=== PATIENT | female | born 1980 | race Caucasian/White ===

== ENCOUNTER 2016-09-06 16:28 | Emergency (ER) | payer BC, OTHER ==
[2016-09-06] MEDS ORDERED: KETOROLAC 30 MG/ML 1 ML VIAL IVP STA (16:53)
[2016-09-06] MEDS ORDERED: SODIUM CHLORIDE 0.9% 1,000 ML IV STA (16:53)
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
[2016-09-06 17:23] LABS: Basophils % (A) 1 %; CH 30.9; CHCM 34.2; Eosinophils # (A) 0.1 k/uL (0-0.7); Eosinophils % (A) 2 %; HCT 37.9 % (34.0-46.0); HDW 2.63; HGB 12.8 gm/dL (11.4-16.0); Luc # (Auto) 0.12; Luc % (Auto) 2; Lymphocytes # (A) 2.6 k/uL (1.0-4.8); Lymphocytes % (A) 36 %; MCH 30.6 pg (25.0-35.0); MCHC 33.7 g/dL (31.0-37.0); MCV 90.9 fL (80.0-100.0); Mean Platelet Volume 7.4; Monocytes # (A) 0.4 k/uL (0-1.0); Monocytes % (A) 5 %; Neutrophils # (A) 3.8 k/uL (1.3-7.7); Neutrophils % (A) 54 %; RBC 4.17 m/uL (3.80-5.40); RDW 12.7 % (11.5-15.5); WBC 7.1 k/uL (3.8-10.6); WBC (Perox) 6.74
[2016-09-06 17:33] LABS: Appearance,Urine Cloudy (Clear); Bilirubin,Urine Negative (Negative); Glucose,Urine (UA) Negative (Negative); Ketones,Urine Negative (Negative); Leukocyte Esterase,Urine Trace (Negative); Mucus,Urine Moderate /hpf; Nitrite,Urine Negative (Negative); Particle Count 5449; Protein,Urine 1+ (Negative); RBC,Urine >182 /hpf (0-5); Specific Gravity,Urine 1.027 (1.001-1.035); Squamous Epithelial Cell,Urine 1 /hpf (0-4); UA Billing (MACRO vs. MICRO) MICRO; Urobilinogen,Urine <2.0 mg/dL (<2.0); WBC,Urine 24 /hpf (0-5)
[2016-09-06 17:44] LABS: ALT 43 U/L (9-52); AST 26 U/L (14-36); Alkaline Phosphatase 77 U/L (38-126); Anion Gap 8 mmol/L; Blood Urea Nitrogen 18 mg/dL (7-17); Calcium 9.2 mg/dL (8.4-10.2); Carbon Dioxide 27 mmol/L (22-30); Chloride 105 mmol/L (98-107); Glucose 89 mg/dL (74-99); Non-African American GFR(MDRD) >60 (>60 ml/min/1.73 sqM); Potassium 4.5 mmol/L (3.5-5.1); Sodium 140 mmol/L (137-145); Total Bilirubin 0.5 mg/dL (0.2-1.3); Total Protein 7.8 g/dL (6.3-8.2)
[2016-09-06 18:01] LABS: HCG,Quantitative Serum <2.4 mIU/mL
--- NOTE | 2016-09-06 18:08 | US ---
EXAMINATION TYPE: US transvaginal plus Dopplers DATE OF EXAM: 09/06/2016 5:35 PM COMPARISON: CLINICAL HISTORY: 36-year-old female Pain. LLQ pain, Heavy bleeding. Tubes tied + reversal. TECHNIQUE: Multiple transvaginal sonographic images of the pelvis are obtained. Color Doppler and sp ectral waveform analysis of the ovarian arteries and veins. Date of LMP: 08/30/2016 FINDINGS: Uterus: Anteverted measuring 10.1 x 5.9 x 5.6 cm. Cervical nabothian cyst is noted measuring up to 8 mm. Endometrial Stripe: 2.1 cm, thickened and not well delineated. Right Ovary: 3.4 x 2.7 x 1.7 cm for a volume of 8.2 mL. Numerous small follicles are present within. There is satisfactory arterial and venous flow. Left Ovary: 2.9 x 2.4 x 2.3 cm for a volume of 8.3 mL. Numerous small peripheral follicles are prese nt. There is satisfactory arterial and venous flow. No evident adnexal abnormality. Small amount of cul-de-sac free fluid likely physiologic. IMPRESSION: 1. No sonographic evidence for ovarian torsion. 2. Follicular change in both ovaries. 3. Excessively thickened endometrial stripe at 2.1 cm. Follow-up in 6-8 weeks to reassess the endomet rium. 4. Small amount of cul-de-sac free fluid likely physiologic.
[2016-09-06 18:23] VITALS: BP 139/85; PULSE 81; RESP 18; TEMP 97.6
== END 2016-09-06 18:24 | disposition home or self-care (01) ==
LOC: EC 16:28
DX: N92.1 Excessive and frequent menstruation with irregular cycle (principal); N85.8 Other specified noninflammatory disorders of uterus; E07.9 Disorder of thyroid, unspecified; Z98.51 Tubal ligation status; Z32.02 Encounter for pregnancy test, result negative; Z79.899 Other long term (current) drug therapy; Z87.891 Personal history of nicotine dependence
CPT/HCPCS: 99284; 96374; 96361; 36415; 86900; 86901; 80053; 85025; 81001; 84702; 93975; 76830; J1885

== ENCOUNTER → 2016-09-18 | Outpatient (CLI) | payer OTHER ==
--- NOTE | 2016-09-18 21:24 | MR ---
EXAMINATION TYPE: MR angio head wo con DATE OF EXAM: 09/18/2016 COMPARISON: NONE HISTORY: Headache TECHNIQUE: Utilizing 3-D [id number] intracranial MRA of the [place] was performed. FINDINGS: The vertebrobasilar and carotid systems are patent. There is 2 mm protuberance extending off the pos terior margin of the distal left ICA compatible with a tiny aneurysm. Posterior cerebral artery on the right originates from the anterior circulation. IMPRESSION: 1. 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
--- NOTE | 2016-09-18 21:24 | MR ---
MRI of the brain with and without contrast EXAM DATE: 09/18/2016 HISTORY: Headaches. TECHNIQUE: T1-weighted sagittal, T2, FLAIR, and diffusion axial, postcontrast T1 axial and coronal vi ews of the brain are submitted. CONTRAST: 20 mL MultiHance FINDINGS: There is no evidence of acute ischemia. The ventricles, basal cisterns, and sulci overlying the co nvexities are consistent with the patient's age. There is no mass effect or enhancing mass. Craniocervical junction maintained. Sella turcica has a normal appearance. No evidence of cerebellopo ntine angle mass. Changes of mild chronic sinusitis. WHITE MATTER: No abnormal signal within the white matter. IMPRESSION: 1. No acute intracranial process
== END | disposition home or self-care (01) ==
LOC: RADMRIMAIN 19:10
PROVIDERS: ATTEND Psychiatry & Neurology Neurology
DX: I67.1 Cerebral aneurysm, nonruptured (principal)
CPT/HCPCS: 70544; 70553; A9577

== ENCOUNTER → 2016-10-24 | Outpatient (CLI) | payer OTHER ==
[2016-10-24 12:31] LABS: Follicle Stimulating Hormone 4.7 mIU/mL; Prolactin 22.1 ng/mL (3.0-18.6)
--- NOTE | 2016-10-24 14:18 | US ---
EXAMINATION TYPE: US pelvic complete DATE OF EXAM: 10/24/2016 COMPARISON: Previous study dated 09/06/2016 CLINICAL HISTORY: R93.8 Endometrial Thickening on US. Heavy cycles, dub TECHNIQUE: Transvaginal (TV) and Transabdominal (TA) Date of LMP: dub, unsure EXAM MEASUREMENTS: Uterus: 11.1 x 5.5 x 5.3 cm Endometrial Stripe: 2.2 cm Right Ovary: 4.2 x 2.5 x 3.2 cm Left Ovary: 3.4 x 3.2 x 2.5 cm 1. Uterus: Anteverted diffusely heterogeneous echo pattern, few Nabothian cysts 2. Endometrium: thickened at cm with vascularity 3. Right Ovary: wnl 4. Left Ovary: wnl 5. Bilateral Adnexa: wnl 6. Posterior cul-de-sac: no free fluid seen IMPRESSION: 1. Heterogenous uterus may reflect adenomyosis. 2. Nabothian cysts.
== END | disposition home or self-care (01) ==
LOC: RADUSWWP 10:58
PROVIDERS: ATTEND Obstetrics & Gynecology
DX: N88.8 Other specified noninflammatory disorders of cervix uteri (principal); N92.0 Excessive and frequent menstruation with regular cycle
CPT/HCPCS: 36415; 76830; 76856; 82670; 83001; 83002; 84146; 84439; 84443

== ENCOUNTER 2016-12-10 17:29 | Emergency (ER) | payer OTHER ==
[2016-12-10] MEDS ORDERED: ONDANSETRON 4 MG/2 ML VIAL IVP STA (17:38)
[2016-12-10] MEDS ORDERED: HYDROmorphone 1 MG/ML 1 ML SYRINGE IVP STA (17:38)
[2016-12-10] MEDS ORDERED: SODIUM CHLORIDE 0.9% 500 ML IV STA (17:38)
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
[2016-12-10 17:57] LABS: Appearance,Urine Clear (Clear); Basophils # (A) 0.1 k/uL (0-0.2); Basophils % (A) 1 %; Bilirubin,Urine Negative (Negative); CH 30.7; CHCM 34.5; Eosinophils # (A) 0.2 k/uL (0-0.7); Eosinophils % (A) 2 %; Glucose,Urine (UA) Negative (Negative); HDW 2.63; HGB 13.6 gm/dL (11.4-16.0); Ketones,Urine Negative (Negative); Leukocyte Esterase,Urine Negative (Negative); Luc # (Auto) 0.18; Luc % (Auto) 2; Lymphocytes # (A) 2.9 k/uL (1.0-4.8); Lymphocytes % (A) 30 %; MCH 31.3 pg (25.0-35.0); MCV 89.5 fL (80.0-100.0); Mean Platelet Volume 7.4; Monocytes # (A) 0.4 k/uL (0-1.0); Monocytes % (A) 4 %; Neutrophils # (A) 5.9 k/uL (1.3-7.7); Neutrophils % (A) 62 %; Nitrite,Urine Negative (Negative); PH, Urine 7.5 (5.0-8.0); Protein,Urine Negative (Negative); RBC 4.36 m/uL (3.80-5.40); RDW 12.3 % (11.5-15.5); UA Billing (MACRO vs. MICRO) CHEM; Urobilinogen,Urine <2.0 mg/dL (<2.0); WBC 9.5 k/uL (3.8-10.6); WBC (Perox) 10.01
[2016-12-10 18:20] LABS: ALT 36 U/L (9-52); AST 17 U/L (14-36); Alkaline Phosphatase 84 U/L (38-126); Amylase 57 U/L (30-110); Anion Gap 11 mmol/L; Blood Urea Nitrogen 15 mg/dL (7-17); Calcium 9.4 mg/dL (8.4-10.2); Carbon Dioxide 26 mmol/L (22-30); Chloride 101 mmol/L (98-107); Glucose 91 mg/dL (74-99); Non-African American GFR(MDRD) >60 (>60 ml/min/1.73 sqM); Potassium 4.2 mmol/L (3.5-5.1); Sodium 138 mmol/L (137-145); Total Bilirubin 0.5 mg/dL (0.2-1.3); Total Protein 7.9 g/dL (6.3-8.2)
--- NOTE | 2016-12-10 18:28 | XR ---
EXAMINATION TYPE: XR KUB DATE OF EXAM: 12/10/2016 6:18 PM CLINICAL HISTORY: Abdominal pain, nausea, and vomiting TECHNIQUE: Single supine KUB image of the abdomen is obtained. COMPARISON: None. FINDINGS: Scattered gas is seen in non-distended small bowel loops. Gas and fecal material is seen in non-distended colon. There is no visceromegaly, gross pneumoperitoneum, or abnormal calcification ap preciated. The lung bases are clear and the osseous structures are intact. IMPRESSION: 1. Nonobstructive bowel gas pattern. 2. No abnormal calcifications within the abdomen.
--- NOTE | 2016-12-10 19:28 | US ---
EXAMINATION TYPE: US abdomen limited DATE OF EXAM: 12/10/2016 COMPARISON: NONE CLINICAL HISTORY: Pain. RUQ pain and nausea EXAM MEASUREMENTS: Liver Length: 18.7 cm Gallbladder Wall: 0.56 cm CBD: 0.47 cm Right Kidney: 10.3 x 4.4 x 4.7 cm Pancreas: Obscured by bowel gas Liver: wnl Gallbladder: Stone visualized Evidence for sonographic Ashford's sign: No CBD: wnl Right Kidney: No hydronephrosis or masses seen Gallstone visualized in neck of gallbladder IMPRESSION: Cholelithiasis with a solitary gallstone in the gallbladder neck. No current evidence of choledocholithiasis, acute cholecystitis, or common bile duct dilation. Intermittent biliary colic is a possibility secondary to this mobile gallstone.
[2016-12-10 20:03] VITALS: BP 137/79; PULSE 68; RESP 18; TEMP 97.9
== END 2016-12-10 20:02 | disposition home or self-care (01) ==
LOC: EC 17:29
DX: K80.20 Calculus of gallbladder without cholecystitis without obstruction (principal); R11.10 Vomiting, unspecified; E07.9 Disorder of thyroid, unspecified; Z87.891 Personal history of nicotine dependence; Z79.899 Other long term (current) drug therapy; Z98.51 Tubal ligation status
CPT/HCPCS: 99284; 96374; 96375; 36415; 80053; 82150; 83690; 85025; 81003; 81025; 74000; 76705; J2405; J1170

== ENCOUNTER 2016-12-25 09:58 | Day surgery (SDC) | payer OTHER ==
[2016-12-18 15:53] VITALS: BMI 33.6
[~2016-12-25 09:58] MED LIST: DEXAMETHASONE SOD PHOSPHATE 10 MG/ML 1 ML VIAL IV ONE; HEPARIN SODIUM,PORCINE 5,000 UNIT/ML 1 ML VIAL SQ ONE; HYDROmorphone 1 MG/ML 1 ML SYRINGE IVP PRN; LIDOCAINE 1% 20 ML VIAL (10MG/ML) FOR IV START INTRADERMA PRN; MIDAZOLAM 2 MG/2 ML VIAL IV PRN; ONDANSETRON 4 MG/2 ML VIAL IVP ONE; SCOPOLAMINE 1.5MG/72HR PATCH TRANSDERM ONE; ceFAZolin 2 GM in SODIUM CHLORIDE 0.9% 100 ML IVPB ONE
[2016-12-25] MEDS: LACTATED RINGERS 1,000 ML IV SCH ×2 (11:27→11:28)
[2016-12-25] MEDS ORDERED: SUCCINYLCHOLINE CHLORIDE 100 MG/5 ML SYR IV ONE (12:22)
[2016-12-25] MEDS ORDERED: GLYCOPYRROLATE 0.2 MG/ML 2 ML VIAL ONE (12:22)
[2016-12-25] MEDS ORDERED: fentaNYL (PF) 50 MCG/ML 2 ML AMP ONE (12:22)
[2016-12-25] MEDS ORDERED: MIDAZOLAM 2 MG/2 ML VIAL ONE (12:22)
[2016-12-25] MEDS ORDERED: PROPOFOL 10 MG/ML 20 ML VIAL IV ONE (12:22)
[2016-12-25] MEDS ORDERED: NEOSTIGMINE 1 MG/ML 10 ML VIAL ONE (12:22)
[2016-12-25] MEDS ORDERED: ROCURONIUM BROMIDE 10 MG/ML 10 ML VIAL IV ONE (12:22)
[2016-12-25] MEDS ORDERED: KETOROLAC 30 MG/ML 1 ML VIAL ONE (12:22)
[2016-12-25] MEDS ORDERED: LIDOCAINE 1% INJ 10MG/ML (20 ML MDV) ONE (12:22)
[2016-12-25] MEDS ORDERED: BUPIVACAINE-EPI 0.5%-1:200,000 10 ML VIAL SQ ONE (12:58)
[2016-12-25] MEDS ORDERED: HYDROmorphone 1 MG/ML 1 ML SYRINGE IVP ONE ×3 (13:47→14:20)
[2016-12-25] MEDS ORDERED: HYDROmorphone 2 MG/ML 1 ML SYRINGE IVP ONE (13:53)
[2016-12-25 13:58] VITALS: TEMP 97.7
[2016-12-25 14:02] VITALS: RESP 16
--- NOTE | 2016-12-25 14:08 | P.OP ---
Date of Procedure: 12/25/16 Preoperative Diagnosis: Chronic cholecystitis Postoperative Diagnosis: Chronic hcoelcystitis Procedure(s) Performed: Robot assisted laparoscopic choelcystectomy Implants: Anesthesia: RASHAWN Surgeon: Michael Castellon Pathology: other Condition: stable Indications for Procedure: Operative Findings: Description of Procedure: Patient is a 36-year-old female who presented with right upper quadrant pain and a clinical diagnosis of chronic cholecystitis was made. After appropriate informed consent and answering all the patient's questions patient taken the operating placement position and given general anesthesia with endotracheal intubation. After an unsuccessful attempt to use the Veress needle for insufflation at the infraumbilical region left upper quadrant was identified and Veress needle was used to enter the abdominal cavity and insufflated to 15 mmHg after confirming its position with the drop test. Once the abdomen insufflated 5 mm Optiview was used to enter the abdominal cavity through the left upper quadrant. Three 8 mm ports were then placed for the robot in the left upper quadrant and right upper quadrant. 12 mm port was placed supraumbuilically. Once ports were then placed the patient was placed in appropriate position of left side down and reverse Trendelenburg. The robot was docked and Prograsp was taken in arm 3, cardiere in arm 2. Camera was through the 12 mm umbilical port site. And a hook cautery was taken in the arm 1. Gallbladder was retracted cephalad and superiorly. Inflammatory adhesions were taken down with the help of electrocautery. Appropriate critical view was obtained in cystic duct and artery were isolated. 2 clips proximally and 1 distally were plced in the artery and cystic duct and then and transected sharply with the help of scissors. The gallbladder was then taken off the gallbladder fossa with the help of electrocautery. There was inadvertent hole in the gallbladder which resulted in leakage of bile. All that was sucked dry. The abdomen was thoroughly irrigated and sucked dry. Gallbladder was then placed in Endo Catch bag and removed through 12 port site after undocking the robot. Abdomen was then again visualized and completely irrigated and sucked dry. 12 mm port site was closed with the help of a Jesus Manuel Tidwell under direct laparoscopic view using 0 Vicryl. At this point the procedure was terminated and all ports were removed. Local anesthesia infiltrated into the incisions skin was closed with 4-0 Monocryl and Dermabond was applied. Patient is tolerated the procedure well with no complications. She was extubated and taken to recovery room in stable condition.
[2016-12-25] MEDS ORDERED: LACTATED RINGERS 1,000 ML IV ONE (14:37)
[2016-12-25] MEDS ORDERED: MEPERIDINE 50 MG/ML SYRINGE IVP ONE ×2 (14:38→15:15)
[2016-12-25 16:04] VITALS: BP 120/78; PULSE 96
== END 2016-12-25 16:27 | disposition home or self-care (01) ==
LOC: OR 09:58
PROVIDERS: ATTEND Surgery
DX: K80.10 Calculus of gallbladder with chronic cholecystitis without obstruction (principal); E03.9 Hypothyroidism, unspecified; K21.9 Gastro-esophageal reflux disease without esophagitis; Z79.899 Other long term (current) drug therapy
CPT/HCPCS: 47562; S2900; 81025; 88304

== ENCOUNTER 2017-01-15 08:24 | Day surgery (SDC) | payer OTHER ==
[2017-01-09 12:55] VITALS: BMI 34.4
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
[~2017-01-15 08:24] MED LIST changes: -HEPARIN SODIUM,PORCINE 5,000 UNIT/ML 1 ML VIAL SQ ONE; +HYDROmorphone 0.5 MG/0.5 ML SYRINGE IVP PRN; -HYDROmorphone 1 MG/ML 1 ML SYRINGE IVP PRN; +LACTATED RINGERS 1,000 ML IV SCH; -LIDOCAINE 1% 20 ML VIAL (10MG/ML) FOR IV START INTRADERMA PRN; -MIDAZOLAM 2 MG/2 ML VIAL IV PRN; +Pre Op ABX Message 1 EACH MISC MISCELLANE ONE; -SCOPOLAMINE 1.5MG/72HR PATCH TRANSDERM ONE; -ceFAZolin 2 GM in SODIUM CHLORIDE 0.9% 100 ML IVPB ONE
[2017-01-15] MEDS ORDERED: LIDOCAINE 1% 20 ML VIAL (10MG/ML) FOR IV START INTRADERMA ONE (08:44)
[2017-01-15] MEDS ORDERED: KETOROLAC 30 MG/ML 1 ML VIAL ONE (09:09)
[2017-01-15] MEDS ORDERED: PROPOFOL 10 MG/ML 20 ML VIAL IV ONE (09:09)
[2017-01-15] MEDS ORDERED: fentaNYL (PF) 50 MCG/ML 2 ML AMP ONE (09:09)
[2017-01-15] MEDS ORDERED: MIDAZOLAM 2 MG/2 ML VIAL ONE (09:09)
--- NOTE | 2017-01-15 09:43 | P.OP ---
Date of Procedure: 01/15/17 Preoperative Diagnosis: Metromenorrhagia Postoperative Diagnosis: Same Procedure(s) Performed: Dilation and curettage with hysteroscopy Anesthesia: RASHAWN Surgeon: Alli Zapata Estimated Blood Loss (ml): 3 Pathology: other (Uterine curettings) Condition: stable Disposition: same day Operative Findings: Grossly thickened endometrium. Pathology pending Description of Procedure: Patient was taken to the operating suite where a general anesthetic was found be adequate. She was prepped and draped in the normal sterile fashion and placed in dorsal lithotomy position. Initially a speculum was inserted into the vagina and the anterior lip cervix was identified and grasped with a Allis clamp. Camera was inserted thickened endometrium with question of polyps was noted therefore camera was removed and sharp curettings of endometrium was obtained. All tissues collected placed on Telfa and sent to pathology for evaluation once this was completed all instruments were removed sponge, lap, needle counts were all correct 2. Patient was then taken to the recovery room in stable and satisfactory condition. Plan - Discharge Summary New Discharge Prescriptions: New Ibuprofen [Motrin] 600 mg PO Q6HR PRN #30 tab PRN Reason: Pain No Action Levothyroxine Sodium [Synthroid] 75 mcg PO MOWEFR Omeprazole [PriLOSEC] 20 mg PO AC-BRKFST PRN PRN Reason: REFLUX Levothyroxine Sodium [Synthroid] 50 mcg PO SUTUTHSA Ergocalciferol (Vitamin D2) [Vitamin D2] 50,000 unit PO TU Ondansetron [Zofran ODT] 4 mg PO Q8HR PRN PRN Reason: Nausea Discharge Medication List Levothyroxine Sodium [Synthroid] 75 mcg PO MOWEFR 09/14/13 [History] Ergocalciferol (Vitamin D2) [Vitamin D2] 50,000 unit PO TU 09/06/16 [History] Levothyroxine Sodium [Synthroid] 50 mcg PO SUTUTHSA 09/06/16 [History] Omeprazole [PriLOSEC] 20 mg PO AC-BRKFST PRN 09/06/16 [History] Ondansetron [Zofran ODT] 4 mg PO Q8HR PRN 01/09/17 [History] Ibuprofen [Motrin] 600 mg PO Q6HR PRN #30 tab 01/15/17 [Rx] Follow up Appointment(s)/Referral(s): Alli Zapata DO [Doctor of Osteopathic Medicine] - 1 Week Activity/Diet/Wound Care/Special Instructions: Pelvic rest, no heavy lifting, limit stairs and driving today. If any high temperatures, heavy bleeding, or severe pain call my office Discharge Disposition: HOME SELF-CARE
[2017-01-15 09:56] VITALS: TEMP 97.3
[2017-01-15 10:40] VITALS: RESP 16
[2017-01-15 11:13] VITALS: BP 111/80; PULSE 72
== END 2017-01-15 11:35 | disposition home or self-care (01) ==
LOC: OR 08:24
PROVIDERS: ATTEND Obstetrics & Gynecology
DX: N92.1 Excessive and frequent menstruation with irregular cycle (principal); N92.0 Excessive and frequent menstruation with regular cycle; R93.8 Abnormal findings on diagnostic imaging of other specified body structures; E28.2 Polycystic ovarian syndrome; I67.1 Cerebral aneurysm, nonruptured; K21.9 Gastro-esophageal reflux disease without esophagitis; Z87.891 Personal history of nicotine dependence; E07.9 Disorder of thyroid, unspecified; Z79.899 Other long term (current) drug therapy
CPT/HCPCS: 81025; 58558; J2250; J1100; J2405; J3010; J1885; J2704; 88305

== ENCOUNTER → 2017-08-29 | Outpatient (CLI) | payer OTHER ==
[2017-08-29 16:16] LABS: DHEA Sulfate 123.4 ug/dL (26.0-430.0); Progesterone 5.6 ng/mL
[2017-08-29 16:30] LABS: Insulin Level 114.3 mIU/mL (3.0-25.0)
[2017-08-29 18:19] LABS: Hemoglobin A1C 4.8 % (4.0-6.0)
== END | disposition home or self-care (01) ==
LOC: LABWHC1 08:44
PROVIDERS: ATTEND Obstetrics & Gynecology
DX: N93.8 Other specified abnormal uterine and vaginal bleeding (principal)
CPT/HCPCS: 36415; 82627; 82947; 83036; 83525; 84144; 84402

== ENCOUNTER 2017-09-27 20:53 | Emergency (ER) | payer OTHER ==
[2017-09-27 21:10] VITALS: RESP 18
[2017-09-27] MEDS ORDERED: SODIUM CHLORIDE 0.9% 1,000 ML IV STA (21:51)
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
[2017-09-27 22:04] LABS: Appearance,Urine Cloudy (Clear); Bacteria,Urine Few /hpf; Bilirubin,Urine Negative (Negative); Blood,Urine Moderate (Negative); Color,Urine Yellow; Glucose,Urine (UA) Negative (Negative); Ketones,Urine Trace (Negative); Leukocyte Esterase,Urine Moderate (Negative); Mucus,Urine Few /hpf; Nitrite,Urine Negative (Negative); Protein,Urine Trace (Negative); RBC,Urine 5 /hpf (0-5); Squamous Epithelial Cell,Urine 7 /hpf (0-4); WBC,Urine 11 /hpf (0-5)
[2017-09-27 22:06] LABS: Basophils % (A) 1 %; Eosinophils # (A) 0.2 k/uL (0-0.7); Eosinophils % (A) 2 %; HCT 36.6 % (34.0-46.0); HGB 12.5 gm/dL (11.4-16.0); Lymphocytes # (A) 2.6 k/uL (1.0-4.8); Lymphocytes % (A) 30 %; MCH 30.1 pg (25.0-35.0); MCV 88.4 fL (80.0-100.0); Mean Platelet Volume 7.1; Monocytes # (A) 0.5 k/uL (0-1.0); Monocytes % (A) 6 %; Neutrophils # (A) 5.2 k/uL (1.3-7.7); Neutrophils % (A) 60 %; Platelet Count 332 k/uL (150-450); RBC 4.14 m/uL (3.80-5.40); WBC 8.7 k/uL (3.8-10.6)
[2017-09-27 22:15] LABS: Partial Thromboplastin Time 22.3 sec (22.0-30.0); Prothrombin Time 9.6 sec (9.0-12.0)
[2017-09-27 22:16] LABS: ALT 54 U/L (9-52); AST 31 U/L (14-36); Albumin 4.3 g/dL (3.5-5.0); Alkaline Phosphatase 55 U/L (38-126); Amylase 47 U/L (30-110); Anion Gap 14 mmol/L; Blood Urea Nitrogen 11 mg/dL (7-17); Calcium 9.1 mg/dL (8.4-10.2); Carbon Dioxide 25 mmol/L (22-30); Chloride 101 mmol/L (98-107); Glucose 95 mg/dL (74-99); Lipase 69 U/L (23-300); Potassium 3.7 mmol/L (3.5-5.1); Sodium 140 mmol/L (137-145); Total Bilirubin 0.4 mg/dL (0.2-1.3); Total Protein 7.3 g/dL (6.3-8.2)
--- NOTE | 2017-09-27 22:40 | US ---
EXAM: US First Trimester, Transabdominal CLINICAL HISTORY: ITS.REASON US Reason: vaginal bleed; abd pain TECHNIQUE: Real-time transabdominal obstetrical ultrasound of the maternal pelvis and a first trimester with image documentation. COMPARISON: None FINDINGS: Uterus: Measures 10.7 x 7.0 x 7.4 cm. Gestational sac identified within the endometrial cavity. Subchorionic hemorrhage noted to the right of the gestational sac measuring 5.6 x 1.4 x 2.5 cm. An embryonic pole is identified. Chamita-rump length measures 0.69 cm. heart rate 126 bpm. Cervix is long and closed. Ovaries: The right ovary measures 2.9 x 1.4 x 1.9 cm. The left ovary measures 2.8 x 1.9 x 1.8 cm. The ovaries demonstrate normal color flow. Other: No free fluid is identified. No adnexal mass. LMP: 08/06/2017 GA by LMP: 17 weeks 3 days MAGDALENE by LMP: 05/13/2018 Average ultrasound age: 6 weeks 4 days MAGDALENE by ultrasound: 05/19/2018 IMPRESSION: 1. Single intrauterine with heart rate of 126 bpm. Subchorionic hemorrhage noted measuring 5.6 x 1.4 x 2.5 cm. 2. Normal appearance of the ovaries.
[2017-09-27 23:08] LABS: HCG,Quantitative Serum 52371.3 mIU/mL
[2017-09-27 23:57] VITALS: BP 134/66; PULSE 84; TEMP 97.8
== END 2017-09-27 23:57 | disposition home or self-care (01) ==
LOC: EC 20:53
DX: O20.8 Other hemorrhage in early pregnancy (principal); O21.9 Vomiting of pregnancy, unspecified; O99.89 Other specified diseases and conditions complicating pregnancy, childbirth and the puerperium; R19.7 Diarrhea, unspecified; O99.281 Endocrine, nutritional and metabolic diseases complicating pregnancy, first trimester; E07.9 Disorder of thyroid, unspecified; Z98.51 Tubal ligation status; Z3A.01 Less than 8 weeks gestation of pregnancy; Z98.890 Other specified postprocedural states; Z79.899 Other long term (current) drug therapy
CPT/HCPCS: 36415; 76801; 80053; 81001; 82150; 83690; 84702; 85025; 85610; 85730; 86900; 86901; 96360; 99284

== ENCOUNTER → 2017-10-06 | Outpatient (CLI) | payer SELFPAY ==
--- NOTE | 2017-10-06 14:43 | US ---
EXAMINATION TYPE: Transabdominal DATE OF EXAM: 07/21/17 COMPARISON: Prior ultrasound from 9 days ago CLINICAL HISTORY: Z36 Encounter for screening of mother. EXAM PERFORMED: Transabdominal (TA) EXAM MEASUREMENTS: GESTATIONAL AGE / DATING Physician Established: Not yet established Dates by LMP: (8 weeks/5 days) EDC: 05/13/2018 Dates by First Scan: (7 weeks/5 days) EDC: 05/19/2018 Dates by Current Scan for: (7 weeks/4 days) EDC: 05/21/2018 MATERNAL ANATOMY Uterus: 15.1 x 7.0 x 8.4 cm Right Ovary: wnl Left Ovary: wnl Post CDS / Adnexa: wnl Presence of free fluid: no Presence of corpus luteal cyst: no Presence of subchorionic bleed: yes 0.9 x 2.0 x 1.9 cm prior 5.6 x 2.5 x 1.4 cm GESTATION / SURVEY CRL: 1.4 (7 weeks/5 days) MSD: 2.6 (7 weeks/2 days) Yolk Sac (normal less than 6mm): 3mm Heart Rate: 167 bpm Rhythm: Normal IUP: Viable IUP Date of LMP: 08/06/2017 Beta HcG (if available): na Redemonstration of single live intrauterine gestation as gestational sac, yolk sac, and pole are redemonstrated. No free fluid is seen in pelvic cul-de- sac. Persistent tiny subchorionic hemorrhage diminished in size from prior exam. Both ovaries are seen. No suspicious extraovarian adnexal masses are noted. IMPRESSION: Single live intrauterine gestation redemonstrated, mean crown-rump length is 1.4 cm corresponding to 7 week 5 day old fetus. There is near complete resolution of subchorionic hemorrhage noted. MTDD
== END | disposition home or self-care (01) ==
LOC: RADUSWWP 13:43
PROVIDERS: ATTEND Obstetrics & Gynecology
DX: O20.9 Hemorrhage in early pregnancy, unspecified (principal); O41.8X90 Other specified disorders of amniotic fluid and membranes, unspecified trimester, not applicable or unspecified; Z3A.01 Less than 8 weeks gestation of pregnancy
CPT/HCPCS: 76801; 76817

== ENCOUNTER 2018-04-17 11:45 | Outpatient (CLI) | payer BC ==
[2018-04-17 13:19] VITALS: BP 131/91; PULSE 92; RESP 20; TEMP 97.8
--- NOTE | 2018-04-18 07:46 | P.MSEPDOC ---
Presenting Problems - Arrival Data Date of Arrival on Unit: 04/17/18 Time of Arrival on Unit: 11:50 Mode of Transport: Ambulatory - Complaint OB-Reason for Admission/Chief Complaint: NST Medical History - Information : 6 Para: 5 Term: 4 : 1 Abortions: Spontaneous or Elective: 0 Number of Living Children: 5 - Gestational Age Gestational Age by MAGDLAENE (wks/days): 35 Weeks and 1 Days Review of Systems - Review of Systems Constitutional: No problems Breast: No problems ENT: No problems Cardiovascular: No problems Respiratory: No problems Gastrointestinal: No problems Genitourinary: No problems Musculoskeletal: No problems Neurological: No problems Skin: No problems Vital Signs - Temperature Temperature: 97.8 F Temperature Source: Oral - Pulse Right Brachial Pulse Rate: 92 Pulse Assessment Method: Automatic Cuff - Respirations Respiratory Rate: 20 O2 Sat by Pulse Oximetry: 98 - Blood Pressure Right Arm Blood Pressure: 131/91 Blood Pressure Mean: 104 Blood Pressure Source: Automatic Cuff Medical Screen Scoring (Pre) - Cervical Exam Dilation: Exam Deferred Effacement: Exam Deferred Membranes: Intact - Uterine Contractions Frequency: N/A Duration: N/A Intensity: N/A - Maternal Vital Signs Maternal Temperature: N/A Maternal Blood Pressure: Diastolic > 89 = 1 Signs of Preeclampsia: Headache = 1 Maternal Respirations: N/A - Pain Assessment Pain Scale Used: Numeric (1 - 10) Pain Intensity: 1 Pain Management Goal: 1 Pain Behavior: Vocalization - Maternal Trauma Maternal Trauma: N/A - Assessment Baseline FHR: 140 Heart Rate - NICHD Category: Category I (Normal) = 0 NST: Reactive Position: N/A Station: N/A - Total Score Total Score (Pre): 2 Medical Screen Scoring (Post) - Post Treatment Level of Risk Post Treatment Level of Risk: Low (0-5) Physician Notification (Post) - Physician Notified Physician Notified Date: 04/17/18 Physician Notified Time: 12:30 Spoke With: dr andrade New Order Received: Yes - Notification Comment Comment: b/p rechecked times 2 b/p 139/80 and 139/81 reactive nst. may discharge to home and keep f/u appointment Disposition - Disposition OB Disposition: Discharge to home Discharge Date: 04/17/18 Discharge Time: 12:40 I agree with the RN Medical Screening Exam: Yes Risk & Benefit of care provided described in d/c instruction: Yes Diagnosis: SUPERVISION OF ELDERLY MULTIGRAVIDA, THIRD TRIMESTER
== END 2018-04-17 12:40 | disposition home or self-care (01) ==
LOC: FBPOP 11:45
PROVIDERS: ATTEND Obstetrics & Gynecology
DX: O09.523 Supervision of elderly multigravida, third trimester (principal); Z3A.35 35 weeks gestation of pregnancy
CPT/HCPCS: 59025; 99213

== ENCOUNTER 2018-05-14 05:57 | Inpatient (IN) | payer BC ==
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
[2018-05-14] MEDS ORDERED: ceFAZolin IN SWFI 2 GM/20 ML SYRINGE IVP ONE (06:08)
[2018-05-14] MEDS ORDERED: LACTATED RINGERS 1,000 ML IV SCH (06:08)
[2018-05-14] MEDS ORDERED: LIDOCAINE 1% 20 ML VIAL (10MG/ML) FOR IV START INTRADERMA PRN (06:08)
[2018-05-14] MEDS ORDERED: CITRIC ACID-SODIUM CITRATE 15 ML CUP PO ONE (06:08)
[2018-05-14 06:19] VITALS: BMI 39.1
[2018-05-14 07:07] LABS: Basophils % (A) 1 %; Eosinophils # (A) 0.1 k/uL (0-0.7); Eosinophils % (A) 1 %; HCT 30.5 % (34.0-46.0); HGB 9.8 gm/dL (11.4-16.0); Hypochromasia Slight; Lymphocytes # (A) 1.9 k/uL (1.0-4.8); Lymphocytes % (A) 20 %; MCH 27.7 pg (25.0-35.0); MCV 86.4 fL (80.0-100.0); Mean Platelet Volume 7.9; Monocytes # (A) 0.6 k/uL (0-1.0); Monocytes % (A) 6 %; Neutrophils # (A) 6.7 k/uL (1.3-7.7); Neutrophils % (A) 70 %; Platelet Count 303 k/uL (150-450); Poikilocytosis Slight; RBC 3.53 m/uL (3.80-5.40); WBC 9.6 k/uL (3.8-10.6)
[2018-05-14] MEDS ORDERED: PHENYLEPHRINE-0.9% NACL SYG 1 MG/10 ML SYRINGE ONE (07:56)
[2018-05-14] MEDS ORDERED: DEXAMETHASONE SOD PHOS (MDV) 100 MG/10 ML VIAL ONE (07:56)
[2018-05-14] MEDS ORDERED: OXYTOCIN 10 UNIT/ML 1 ML VIAL ONE (07:56)
[2018-05-14] MEDS ORDERED: ONDANSETRON 4 MG/2 ML VIAL ONE (07:56)
[2018-05-14] MEDS ORDERED: MORPHINE SULFATE (PF) 0.3 MG/0.3 ML SYR ONE (07:56)
[2018-05-14] MEDS ORDERED: NALBUPHINE 10 MG/ML (1 ML AMP) ONE (07:56)
[2018-05-14] MEDS ORDERED: KETOROLAC 30 MG/ML 1 ML VIAL ONE (07:56)
[2018-05-14] MEDS ORDERED: MEASLES-MUMPS-RUBELLA VACC/PF 12,500 UNIT/0.5 ML VIAL SQ ONE (08:33)
[2018-05-14] MEDS ORDERED: diphenhydrAMINE 50 MG/ML 1 ML VIAL IVP PRN ×2 (08:33)
[2018-05-14] MEDS ORDERED: ONDANSETRON 4 MG/2 ML VIAL IVP PRN (08:33)
[2018-05-14] MEDS ORDERED: ACETAMINOPHEN TAB 325 MG TAB PO PRN (08:33)
[2018-05-14] MEDS ORDERED: diphenhydrAMINE 50 MG CAP PO PRN (08:33)
[2018-05-14] MEDS ORDERED: METOCLOPRAMIDE 5 MG/ML 2 ML VIAL IVP PRN (08:33)
[2018-05-14] MEDS ORDERED: ZOLPIDEM 5 MG TAB PO PRN (08:33)
[2018-05-14] MEDS ORDERED: diphenhydrAMINE 25 MG CAP PO PRN (08:33)
[2018-05-14] MEDS ORDERED: NALOXONE 0.4 MG/ML 1 ML VIAL IV PRN ×2 (08:33→14:29)
[2018-05-14] MEDS ORDERED: HYDROcodone/APAP 7.5-325MG 1 EACH TAB PO PRN (08:33)
[2018-05-14] MEDS: LACTATED RINGERS 1,000 ML IV SCH ×2 (13:08→20:50)
[2018-05-14] MEDS ORDERED: MORPHINE SULFATE 2 MG/ML SYRINGE IVP PRN (14:29)
[2018-05-14] MEDS ORDERED: NALBUPHINE 10 MG/ML (1 ML AMP) IV PRN (14:29)
[2018-05-14] MEDS: KETOROLAC 30 MG/ML 1 ML VIAL IVP PRN ×2 (14:31→23:26)
[2018-05-14] MEDS: SENNOSIDES-DOCUSATE SODIUM 1 EACH TAB PO SCH (20:50)
[2018-05-15] MEDS: LACTATED RINGERS 1,000 ML IV SCH (05:20)
[2018-05-15 07:17] LABS: Basophils % (A) 0 %; Eosinophils # (A) 0.1 k/uL (0-0.7); Eosinophils % (A) 1 %; HCT 24.8 % (34.0-46.0); Hypochromasia Moderate; Lymphocytes # (A) 1.9 k/uL (1.0-4.8); Lymphocytes % (A) 18 %; MCH 28.3 pg (25.0-35.0); MCHC 32.3 g/dL (31.0-37.0); MCV 87.7 fL (80.0-100.0); Monocytes # (A) 0.6 k/uL (0-1.0); Monocytes % (A) 5 %; Neutrophils # (A) 7.8 k/uL (1.3-7.7); Neutrophils % (A) 74 %; Platelet Count 252 k/uL (150-450); Poikilocytosis Slight; RBC 2.83 m/uL (3.80-5.40); RDW 15.1 % (11.5-15.5); WBC 10.7 k/uL (3.8-10.6)
[2018-05-15] MEDS: SENNOSIDES-DOCUSATE SODIUM 1 EACH TAB PO SCH ×2 (08:19→22:58)
[2018-05-15] MEDS: KETOROLAC 30 MG/ML 1 ML VIAL IVP PRN (08:19)
--- NOTE | 2018-05-15 09:18 | P.PNOBGPC ---
Subjective - Subjective Principal diagnosis: Postop day 1 Interval history: Overall doing very well. Other than some mild abdominal cramping she is feeling very well. She is tolerating her liquid diet and she is ambulating and voiding. Patient reports: Reports appetite normal, Reports voiding normally, Reports pain well controlled, Reports ambulating normally : doing well Objective - Vital Signs Latest vital signs: Vital Signs Temp Pulse Resp BP Pulse Ox 05/15/18 08:00 98.4 F 80 16 103/64 05/15/18 04:00 98 F 85 15 133/82 97 05/15/18 03:00 96 05/15/18 00:00 98 F 87 15 130/80 96 05/14/18 23:00 96 05/14/18 20:00 98 F 80 15 143/80 96 05/14/18 19:00 96 05/14/18 17:00 97.8 F 79 16 120/79 93 L 05/14/18 16:18 97.7 F 05/14/18 15:59 87 16 117/65 91 L 05/14/18 10:40 98.1 F 86 14 125/64 05/14/18 10:10 97.7 F 81 14 129/61 05/14/18 09:25 80 14 110/59 Intake and Output 05/14/18 05/15/18 05/15/18 22:59 06:59 14:59 Output Total 600 500 Balance -600 -500 Output: Urine 600 500 Uretheral (Torres) 300 Other: Voiding Method Indwelling Catheter # Voids 2 - Exam Lungs: bilateral: normal Chest: Normal S1, Normal S2 Extremities: Present: normal Abdomen: Present: normal appearance, soft. Absent: distention, tenderness Incision: Present: normal, dry, intact Uterus: Present: normal, firm - Labs Labs: Abnormal Lab Results - Last 24 Hours (Table) 05/15/18 Range/Units 06:43 WBC 10.7 H (3.8-10.6) k/uL RBC 2.83 L (3.80-5.40) m/uL Hgb 8.0 L D (11.4-16.0) gm/dL Hct 24.8 L (34.0-46.0) % Neutrophils # 7.8 H (1.3-7.7) k/uL
--- NOTE | 2018-05-15 11:54 | P.PN ---
Progress Note - Text Progress Note Date: 05/15/18 37 year old female status post section with Duramorph spinal. Patient doing well, no motor sensory deficits. Minor/minimal pruritus. Tolerating diet , ambulating well.
[2018-05-15] MEDS: IBUPROFEN 600 MG TAB PO PRN (23:30)
[2018-05-16] MEDS: SENNOSIDES-DOCUSATE SODIUM 1 EACH TAB PO SCH ×2 (07:59→21:51)
[2018-05-16] MEDS: IBUPROFEN 600 MG TAB PO PRN ×2 (14:41→21:51)
[2018-05-17] MEDS: IBUPROFEN 600 MG TAB PO PRN (09:50)
[2018-05-17] MEDS: SENNOSIDES-DOCUSATE SODIUM 1 EACH TAB PO SCH (09:58)
--- NOTE | 2018-05-17 09:58 | P.DS ---
Providers Date of admission: 05/14/18 05:57 Expected date of discharge: 05/17/18 Attending physician: Alli Zapata Primary care physician: Stated None Hospital Course: Patient seen and evaluated this morning is doing very well. She was seen yesterday and was doing very well but there are computer she is therefore dictation was input correctly. This morning she is ambulating, voiding and tolerating her diet. She voices no complaints and is requesting discharge home today. Vital signs are stable and she is afebrile. Heart regular, lungs clear , extremities without pain. Abdomen is soft uterus is firm lochia is reported light. Incision is otherwise clean dry and intact. Assessment postop day 3. Plan discharged home follow up with me in 1 week. Prescription for Motrin has been provided and all other questions were answered for her prior to her discharge. Discharge instructions thoroughly reviewed. Patient Condition at Discharge: Good Plan - Discharge Summary New Discharge Prescriptions: New Ibuprofen [Motrin] 600 mg PO Q6HR PRN #30 tab PRN Reason: Pain No Action Levothyroxine Sodium [Synthroid] 50 mcg PO SUTUTHSA Pnv No.95/Ferrous Fum/Folic AC [ Multivitamin Tablet] 1 each PO DAILY Iron (Unknown Dose) 1 tab PO DAILY Discharge Medication List Levothyroxine Sodium [Synthroid] 50 mcg PO SUTUTHSA 09/06/16 [History] Pnv No.95/Ferrous Fum/Folic AC [ Multivitamin Tablet] 1 each PO DAILY [History] Iron (Unknown Dose) 1 tab PO DAILY 05/13/18 [History] Ibuprofen [Motrin] 600 mg PO Q6HR PRN #30 tab 05/17/18 [Rx] Follow up Appointment(s)/Referral(s): Alli Zapata DO [Doctor of Osteopathic Medicine] - 1 Week Activity/Diet/Wound Care/Special Instructions: No heavy lifting, limit stairs and driving, and pelvic rest. If any high temperatures, heavy bleeding, or severe pain call my office Discharge Disposition: HOME SELF-CARE
[2018-05-17 10:33] VITALS: BP 124/84; PULSE 88; RESP 18; TEMP 98.3
--- NOTE | 2018-05-18 17:18 | P.OP ---
Date of Procedure: 05/14/18 Preoperative Diagnosis: Intrauterine at term: Aneurysm: Family planning Postoperative Diagnosis: Same Procedure(s) Performed: Primary low transverse section with tubal occlusion with Filshie clips Anesthesia: spinal Surgeon: Alli Zapata Yard Driver #1: Desmond King Estimated Blood Loss (ml): 600 IV fluids (ml): 500 Urine output (ml): 100 Pathology: none sent Condition: stable Disposition: floor Operative Findings: Normal uterus tubes and ovaries. Viable female Description of Procedure: Patient was taken to the operating suite where a spinal anesthetic was found be adequate. She was prepped and draped in the normal sterile fashion and placed in the dorsal supine position with leftward tilt. Initially a Pfannenstiel skin incision was made and this incision was then carried through to the underlying layer of the fascia with the second knife. Fascia was then nicked in the midline and this opening was extended laterally with Espinal scissors. Superior and inferior aspect of this incision were then grasped tented up and bluntly and sharply dissected off the rectus muscles. Rectus muscles were then divided the midline and blunt dissection through the peritoneum was made. This opening was then extended superiorly and inferiorly with good visualization of both bowel bladder. Bladder blade was then placed in the vesicouterine peritoneum identified. This tissue was entered sharply with Metzenbaum scissors and it was carried across face uterus with same. Bladder was then bluntly dissected out of the operative field. Knife was then used to incise uterus. This opening was then fully developed with hemostat and extended bluntly. Head was then atraumatically delivered followed by the anterior posterior shoulders. A body cord was noted but was easily reduced. Once baby was fully delivered umbilical cord was clamped cut usual fashion an nursery personnel was present to assume care. Placenta was then delivered intact and Pitocin was added to the IV. Uterus was then exteriorized cleared of clots and debris and closed in 1 layer with 0 Vicryl suture. 3-0 Vicryl was then used to reapproximate the bladder flap. Due to the size of the uterus and concern over potentially shearing off the stitches on a normal bilateral partial salpingectomy, Filshie clips were applied to void this occurrence. No bleeding is noted in the mesosalpinx once applied. Uterus was then reinserted into the abdomen following suctioning of blood and debris from the posterior cul-de-sac. Peritoneal layer was then reapproximated with 3-0 Vicryl. Fascial layer was closed 0 Vicryl. One layer of 3-0 Vicryl was placed in deep subcuticular tissues reapproximate the skin and close the space. Skin was then closed with 3-0 Vicryl. Sponge lap, needle counts were all correct 2. Patient was then taken to the recovery room in stable and satisfactory condition.
== END 2018-05-17 11:39 | disposition home or self-care (01) | DRG 785 ==
LOC: 4FBP 05:57
PROVIDERS: ADMIT Obstetrics & Gynecology; ATTEND Obstetrics & Gynecology
PROC: 0UB70ZZ Excision of Bilateral Fallopian Tubes, Open Approach (ICD-10-PCS; 2018-05-14)
PROC: 10D00Z1 Extraction of Products of Conception, Low, Open Approach (ICD-10-PCS; principal; 2018-05-14 08:00)
DX: O99.42 Diseases of the circulatory system complicating childbirth (principal); E03.9 Hypothyroidism, unspecified; I67.1 Cerebral aneurysm, nonruptured; O99.284 Endocrine, nutritional and metabolic diseases complicating childbirth; Z37.0 Single live birth; Z3A.39 39 weeks gestation of pregnancy; Z79.890 Hormone replacement therapy; Z82.49 Family history of ischemic heart disease and other diseases of the circulatory system; Z87.891 Personal history of nicotine dependence; Z82.3 Family history of stroke; Z30.2 Encounter for sterilization
CPT/HCPCS: 85025; 86850; 86900; 86901

== ENCOUNTER → 2019-05-11 | Outpatient (CLI) | payer BC ==
--- NOTE | 2019-05-11 13:50 | US ---
EXAMINATION TYPE: US pelvic complete DATE OF EXAM: 05/11/2019 COMPARISON: 10/06/2017 CLINICAL HISTORY: R10.2 PELVIC PAIN. Heavy menses for 4 months. TECHNIQUE: Transabdominal (TA). Transabdominal sonographic images of the pelvis were acquired. EXAM MEASUREMENTS: Uterus: 11.1 x 4.1 x 6.1 cm Endometrial Stripe: 1.2 cm Right Ovary: 2.5 x 1.8 x 1.8 cm Left Ovary: 3.1 x 2.1 x 2.1 cm 1. Uterus: Anteverted 2. Endometrium: wnl 3. Right Ovary: Follicles seen. 4. Left Ovary: Follicles seen. 5. Bilateral Adnexa: wnl 6. Posterior cul-de-sac: wnl IMPRESSION: 1. No acute process. Endometrial stripe measures 1.2 cm correlate with the phase of patient's menstru al cycle.
[2019-05-11 20:54] LABS: Prolactin 27.5 ng/mL (2.8-29.2)
[2019-05-11 21:33] LABS: Luteinizing Hormone 5.7 mIU/mL
[2019-05-11 21:34] LABS: Follicle Stimulating Hormone 3.2 mIU/mL
== END | disposition home or self-care (01) ==
LOC: RADUSWWP 13:06
PROVIDERS: ATTEND Obstetrics & Gynecology
DX: R10.2 Pelvic and perineal pain (principal); N93.8 Other specified abnormal uterine and vaginal bleeding
CPT/HCPCS: 36415; 76856; 82670; 83001; 83002; 84146

== ENCOUNTER 2019-11-22 06:08 | Day surgery (SDC) | payer BC ==
[2019-11-15 16:03] VITALS: BMI 35.2
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
[~2019-11-22 06:08] MED LIST changes: -HYDROmorphone 0.5 MG/0.5 ML SYRINGE IVP PRN; +LIDOCAINE 1% (10MG/ML) FOR IV START INTRADERMA PRN; +SCOPOLAMINE 1.5MG/72HR PATCH TRANSDERM ONE
[2019-11-22] MEDS ORDERED: ONDANSETRON 4 MG/2 ML VIAL ONE (06:44)
[2019-11-22] MEDS ORDERED: fentaNYL (PF) 50 MCG/ML 2 ML AMP ONE (07:48)
[2019-11-22] MEDS ORDERED: KETOROLAC 30 MG/ML 1 ML VIAL ONE (07:48)
[2019-11-22] MEDS ORDERED: PROPOFOL 10 MG/ML 20 ML VIAL IV ONE (07:48)
[2019-11-22] MEDS ORDERED: MIDAZOLAM 2 MG/2 ML VIAL ONE (07:48)
[2019-11-22] MEDS ORDERED: LIDOCAINE 1% INJ 10MG/ML (20 ML MDV) ONE (07:48)
--- NOTE | 2019-11-22 08:21 | P.OP ---
Date of Procedure: 11/22/19 Preoperative Diagnosis: Menorrhagia Postoperative Diagnosis: Same Procedure(s) Performed: D&C with hysteroscopy and NovaSure Anesthesia: RASHAWN Surgeon: Alli Zapata Estimated Blood Loss (ml): 5 IV fluids (ml): 500 Pathology: other (Uterine curettings) Condition: stable Disposition: same day Operative Findings: Proliferative endometrium was slightly enlarged uterus. Grade 2 uterine prolapse also noted incidentally Description of Procedure: Patient was taken to the operative suite where a general anesthetic was found be adequate. She was prepped and draped in the normal sterile fashion and placed in dorsal lithotomy position. Initially a weighted speculum was inserted into the vagina and the anterior lip of cervix was identified and grasped with a Allis clamp. Cervix was then dilated and sounded to 10 cm. Once this was completed camera was inserted with proliferative endometrium noted. All incidents then removed sharp curettings were obtained and placed on Telfa paper. This was collected and sent to pathology for evaluation. Once completed NovaSure system was inserted with a length of 5 and a width of 4.5 it was tested and enabled. Once it passes patency test, it was initiated and burn for 1 minute 19 seconds. At conclusion the burn system was removed camera was reinserted with excellent burn noted. All incidents were then removed sponge, lap, and needle counts were all correct 2. Patient was then taken to the recovery room in stable and satisfactory condition. Plan - Discharge Summary Discharge Rx Participant: Yes New Discharge Prescriptions: New Ibuprofen [Motrin] 600 mg PO Q6HR PRN #30 tab PRN Reason: Pain No Action Levothyroxine Sodium [Synthroid] 50 mcg PO SUTUTHSA Ibuprofen [Motrin] 600 mg PO Q6HR PRN #30 tab PRN Reason: Pain Acetaminophen/Pamabrom [Midol Caplet] 1 each PO DAILY Discharge Medication List Levothyroxine Sodium [Synthroid] 50 mcg PO SUTUTHSA 09/06/16 [History] Ibuprofen [Motrin] 600 mg PO Q6HR PRN #30 tab 05/17/18 [Rx] Acetaminophen/Pamabrom [Midol Caplet] 1 each PO DAILY 11/15/19 [History] Ibuprofen [Motrin] 600 mg PO Q6HR PRN #30 tab 11/22/19 [Rx] Follow up Appointment(s)/Referral(s): Alli Zapata DO [Doctor of Osteopathic Medicine] - 1 Week A & D,Home Care [NON-STAFF] - As Needed (cancel this is entered in error) Activity/Diet/Wound Care/Special Instructions: No heavy lifting, limit stairs and driving, and pelvic rest. If any high temperatures, heavy bleeding, or severe pain call my office
[2019-11-22] MEDS: HYDROmorphone 0.5 MG/0.5 ML SYRINGE IVP PRN ×2 (08:38→08:47)
[2019-11-22 08:40] VITALS: RESP 16; TEMP 97
[2019-11-22] MEDS ORDERED: MEPERIDINE 50 MG/ML SYRINGE IVP ONE (08:53)
[2019-11-22 09:47] VITALS: BP 123/68; PULSE 65
== END 2019-11-22 09:55 | disposition home or self-care (01) ==
LOC: OR 06:08
PROVIDERS: ATTEND Obstetrics & Gynecology
DX: N92.0 Excessive and frequent menstruation with regular cycle (principal); N84.0 Polyp of corpus uteri; N81.2 Incomplete uterovaginal prolapse; E07.9 Disorder of thyroid, unspecified; D64.9 Anemia, unspecified; G47.30 Sleep apnea, unspecified; Z79.890 Hormone replacement therapy; Z79.899 Other long term (current) drug therapy; Z90.49 Acquired absence of other specified parts of digestive tract; Z98.51 Tubal ligation status; Z98.891 History of uterine scar from previous surgery; Z98.890 Other specified postprocedural states; Z87.891 Personal history of nicotine dependence; Z86.79 Personal history of other diseases of the circulatory system; Z82.49 Family history of ischemic heart disease and other diseases of the circulatory system
CPT/HCPCS: 81025; 88305; 58563; J2250; J1100; J2175; J2405; J2001; J3010; J1885; J2704; J1170

== ENCOUNTER → 2020-11-05 | Outpatient (CLI) | payer BC ==
--- NOTE | 2020-11-06 07:45 | US ---
EXAMINATION TYPE: US pelvic complete DATE OF EXAM: 11/05/2020 COMPARISON: 05/11/2019 CLINICAL HISTORY: N39.8 DUB. patient has had multiple procedures to pelvis, D&C's, , tubal, reverse tubal, tubal again, ablation, h/o endometriosis, partial prolapse at times, , has constan t pelvic pain, bleeding every 14 days TECHNIQUE: TA. Transabdominal sonographic images of the pelvis were acquired. Date of LMP: 10/22/2020 EXAM MEASUREMENTS: Uterus: 10.0 x 5.4 x 4.4 cm Endometrial Stripe: 0.5 cm Right Ovary: 2.3 x 2.1 x 2.2 cm Left Ovary: 2.5 x 2.3 x 2.1 cm 1. Uterus: Anteverted fundus appears heterogeneous with no focal lesion 2. Endometrium: wnl 3. Right Ovary: wnl 4. Left Ovary: wnl 5. Bilateral Adnexa: wnl 6. Posterior cul-de-sac: wnl IMPRESSION: No definite sonographic abnormality. Transvaginal ultrasound is more sensitive.
== END | disposition home or self-care (01) ==
LOC: RADUSWWP 15:28
PROVIDERS: ATTEND Obstetrics & Gynecology
DX: R10.2 Pelvic and perineal pain (principal); N92.0 Excessive and frequent menstruation with regular cycle
CPT/HCPCS: 76856

== ENCOUNTER → 2021-01-01 | Outpatient (CLI) | payer BC ==
[2021-01-01 19:17] LABS: Basophils # (A) 0.04 X 10*3/uL (0.00-0.10); Basophils % (A) 0.7 %; Eosinophils # (A) 0.06 X 10*3/uL (0.04-0.35); HCT 38.2 % (37.2-46.3); HGB 12.7 g/dL (12.0-15.0); Lymphocytes # (A) 2.02 X 10*3/uL (0.90-5.00); Lymphocytes % (A) 33.1 %; MCH 31.9 pg (27.0-32.0); MCHC 33.2 g/dL (32.0-37.0); Mean Platelet Volume 10.6 fL (9.5-12.2); Monocytes # (A) 0.38 X 10*3/uL (0.20-1.00); Monocytes % (A) 6.2 %; Neutrophils % (A) 58.8 %; Platelet Count 293 X 10*3/uL (140-440); RBC 3.98 X 10*6/uL (4.10-5.20); RDW 12.4 % (11.5-14.5); WBC 6.11 X 10*3/uL (4.50-10.00)
[2021-01-02 15:06] LABS: African American GFR (CKD) 126.5 (60.0-200.0); Anion Gap 11.9 mmol/L (4.00-12.00); Calcium 9.2 mg/dL (8.7-10.3); Carbon Dioxide 23.1 mmol/L (21.6-31.8); Non-African American GFR(CKD) 109.1 (60.0-200.0); Potassium 4.3 mmol/L (3.5-5.5)
== END | disposition home or self-care (01) ==
LOC: LABWHC1 13:16
PROVIDERS: ATTEND Obstetrics & Gynecology
DX: Z01.812 Encounter for preprocedural laboratory examination (principal)
CPT/HCPCS: 36415; 80048; 85025

== ENCOUNTER 2021-01-10 06:41 | Day surgery (SDC) | payer BC ==
[2021-01-07 16:10] VITALS: BMI 29.7
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
[2021-01-10] MEDS: LACTATED RINGERS 1,000 ML IV SCH ×3 (07:24→14:36)
[2021-01-10] MEDS: ONDANSETRON 4 MG/2 ML VIAL IVP ONE ×3 (07:25→11:05)
[2021-01-10] MEDS: DEXAMETHASONE SOD PHOSPHATE 4 MG/ML 1 ML VIAL IV ONE ×2 (07:25→07:47)
[2021-01-10] MEDS ORDERED: MIDAZOLAM 2 MG/2 ML VIAL IVP ONE (08:24)
[2021-01-10] MEDS ORDERED: fentaNYL (PF) 50 MCG/ML 2 ML AMP IVP ONE (08:24)
[2021-01-10] MEDS ORDERED: LIDOCAINE 1% INJ 10MG/ML (20 ML MDV) ONE (08:54)
[2021-01-10] MEDS ORDERED: SUCCINYLCHOLINE CHLORIDE 100 MG/5 ML SYR IV ONE (08:54)
[2021-01-10] MEDS ORDERED: ROPIVACAINE 5 MG/ML 30 ML VIAL ONE (08:54)
[2021-01-10] MEDS ORDERED: GLYCOPYRROLATE 0.2 MG/ML 2 ML VIAL ONE (08:54)
[2021-01-10] MEDS ORDERED: ROCURONIUM 10 MG/ML (5 ML VIAL) IV ONE (08:54)
[2021-01-10] MEDS ORDERED: fentaNYL (PF) 50 MCG/ML 2 ML AMP ONE (08:54)
[2021-01-10] MEDS ORDERED: PROPOFOL 10 MG/ML 20 ML VIAL IV ONE (08:54)
[2021-01-10] MEDS ORDERED: NEOSTIGMINE 1 MG/ML 10 ML VIAL ONE (08:54)
[2021-01-10] MEDS ORDERED: MIDAZOLAM 2 MG/2 ML VIAL ONE (08:54)
[2021-01-10] MEDS ORDERED: KETOROLAC 15 MG/ML 1 ML VIAL ONE (08:54)
[2021-01-10] MEDS ORDERED: BUPIVACAINE (PF) 0.25% 30 ML VIAL SQ ONE ×2 (09:31→10:20)
--- NOTE | 2021-01-10 09:52 | P.ANPRN ---
Procedure Note - Anesthesia - Nerve Block Performed Bilateral Erector Spinae Single Time Out Performed: Yes ([id number]) Date of Procedure: 01/10/21 Procedure Start Time: :24 Procedure Stop Time: :34 Location of Patient: PreOp Indication: Acute Post-Operative Pain, Requested by Surgeon Specifically requested for management of pain by DrAlex: Alli Zapata Sedation Type: Sedate with meaningful contact maintained Preparation: Sterile Prep Position: Prone Catheter: None Needle Types: Pajunk Needle Gauge: 21 Ultrasound used to visualize needle placement: Yes Ultrasound used to observe medication spread: Yes Injectate: 0.5% Ropivacaine (see comment for volume) (15cc + NACL 15cc PF) Blood Aspirated: No Pain Paresthesia on Injection Noted: No Resistance on Injection: Normal Image Stored and Saved: Yes Events: Uneventful and Well Tolerated
[2021-01-10] MEDS ORDERED: SIMETHICONE 80 MG CHEWABLE PO PRN (10:20)
[2021-01-10] MEDS ORDERED: ONDANSETRON 4 MG/2 ML VIAL IVP PRN (10:20)
--- NOTE | 2021-01-10 10:26 | P.OP ---
Date of Procedure: 01/10/21 Preoperative Diagnosis: Pelvic pain: Post-ablative syndrome Postoperative Diagnosis: Same Procedure(s) Performed: Robotic-assisted left scopic hysterectomy with bilateral salpingectomy Anesthesia: RASHAWN Surgeon: Alli Zapata Environmental Technical Officer #1: Diana Key Estimated Blood Loss (ml): 100 IV fluids (ml): 700 Urine output (ml): 100 Pathology: other (Uterus, cervix and fallopian tubes) Condition: stable Disposition: floor Operative Findings: Normal ovaries. Suspect adenomyosis of uterus due to boggy nature Description of Procedure: Patient was taken to the operating suite where a general anesthetic was found be adequate. She was prepped and draped in the normal sterile fashion and placed in the dorsal lithotomy position. Initially a weighted speculum was inserted in the vagina and anterior lip of the cervix identified and grasped with a single- tooth tenaculum. Uterus was then sounded to 8 cm and cup size was 3.5 cm Janie manipulator was then inserted without difficulty with sutures placed at 3 and 9 for extra support. These instruments were then removed and a red and a Torres cath was placed. At this point gloves were changed and attention was turned to abdominal portion procedure where 3 mL of quarter percent Marcaine was injected just superior to the umbilicus. Through this injected anesthetic a 5 mm skin incision was made. Through this incision, under direct visualization with an optical trocar and sleeve the camera was inserted. Once peritoneal placement was assured gas was allowed to fully insufflate the abdomen and patient placed in steep Trendelenburg position. It was approximately 25. 2 lateral ports were then placed 12 cm lateral to the umbilicus through 8 mm skin incisions. Da Carolann ports and sleeves were inserted through these incisions. A fourth port and sleeve was then inserted through a 1 cm incision between the left lateral and medial port. Camera port was exchanged for robotic port and the robot was brought in and docked. Once fully docked in place and the one arm and a [place] grasper in the 2 arm and I broke scrub and went to the console. Observations the pelvis were noted. Initially the uterus was elevated and ti pped the right side the left fallopian tube was cauterized off from the mesosalpinx and removed. Once this was completed left utero-ovarian bleeding was identified cauterized and transected mesosalpinx tissues to the round ligament was then cauterized and transected and the round ligament was cauterized and transected. Anterior posterior leafs broad ligament were then developed and uterine vascularity on the left side of the uterus was cauterized. At the level bladder flap bladder flap was entered with the Metzenbaum scissors undermined with the [place] and incised across face uterus bluntly dissecting the uterus bladder out of the operative field. Once completed same technique was used to develop the right side of the uterus. Once this was accomplished balloon was blown up in the Janie manipulator and an anterior colpotomy was made. Following in a counterclockwise fashion cheating head when necessary to maintain excellent hemostasis the cup was followed around using electrocautery. Once 3 and 60 was completed uterus was brought into the vagina to maintain pneumoperitoneum. At this point pedicles were cauterized. Verify vascular hemostasis. And then incidents were exchanged for a suture cut and a cardia grasper. 2:00 suture was then used to reapproximate the cuff in a running fashion. Once this was completed pelvis was irrigated no bleeding is noted from any of the pedicles therefore incidents were removed and gas was allowed to expel from the abdomen. 5 deep breaths were provided during this process. Once completed Dr. Key close the incision subcuticularly and I did a cystoscopy with good flow noted from both ureteral jets. All incidents were then removed. Sponge, lap, needle counts were all correct 2 like it was injected around the incisions and patient was then taken to the recovery room in stable and satisfactory condition.
[2021-01-10] MEDS: HYDROmorphone 0.5 MG/0.5 ML SYRINGE IVP PRN ×4 (10:43→11:20)
[2021-01-10] MEDS ORDERED: diphenhydrAMINE 50 MG/ML 1 ML VIAL ONE (11:33)
[2021-01-10] MEDS ORDERED: diphenhydrAMINE 50 MG/ML 1 ML VIAL IVP ONE (11:35)
[2021-01-10] MEDS ORDERED: HYDROcodone/APAP 5-325MG 1 EACH TAB PO PRN ×2 (16:07)
[2021-01-10] MEDS: KETOROLAC 15 MG/ML 1 ML VIAL IVP PRN (16:34)
[2021-01-10] MEDS: SENNOSIDES-DOCUSATE SODIUM 1 EACH TAB PO SCH (20:39)
[2021-01-11 01:49] VITALS: RESP 16
[2021-01-11] MEDS: KETOROLAC 15 MG/ML 1 ML VIAL IVP PRN (08:01)
[2021-01-11] MEDS: SENNOSIDES-DOCUSATE SODIUM 1 EACH TAB PO SCH (08:01)
[2021-01-11 08:21] VITALS: BP 117/83; PULSE 74; TEMP 98.4
--- NOTE | 2021-01-11 09:15 | P.DS ---
Providers Expected date of discharge: 01/11/21 Attending physician: Alli Zapata Primary care physician: Tom Mancera Hospital Course: Overall time she is doing very well postop day 1. She is ambulating, voiding and tolerating her diet. She has not had a bowel movement but relates that she only has 1 or 2 bowel movements a month. She is making an appointment with GI soon. From a surgical perspective/postoperative perspective she is doing well. She relates that she does have a burning sensation along her right lower extremity is not really truly DVT like and there is no real true Homans sign. She does have some discomfort with home and stretch we'll therefore obtain a Doppler of lower extremity if negative will plan discharge home today. Prescriptions for Motrin and [place] her for her to the pharmacy. All other questions are answered for her at this time. Her vital signs are stable and she is afebrile. Heart regular, lungs clear, extremities are without pain. Abdomen soft and positive bowel sounds are noted. Assessment postop day 1. Plan discharged home follow up with me in 1 week. Discharge instructions were otherwise thoroughly reviewed and all questions are answered for her at this time. Assuming Dopplers are negative she will be discharged home later today. Patient Condition at Discharge: Good Plan - Discharge Summary Discharge Rx Participant: Yes New Discharge Prescriptions: New Ibuprofen [Motrin] 600 mg PO Q6HR PRN #30 tab PRN Reason: Pain HYDROcodone/APAP 5-325MG [[place] 5-325] 1 tab PO Q4HR PRN #30 tab PRN Reason: Pain No Action Levothyroxine Sodium [Synthroid] 50 mcg PO SUTUTHSA Levothyroxine Sodium [Synthroid] 75 mcg PO MOWEFR Discharge Medication List Levothyroxine Sodium [Synthroid] 50 mcg PO SUTUTHSA 09/06/16 [History] Levothyroxine Sodium [Synthroid] 75 mcg PO MOWEFR 01/07/21 [History] HYDROcodone/APAP 5-325MG [[place] 5-325] 1 tab PO Q4HR PRN #30 tab 01/11/21 [Rx] Ibuprofen [Motrin] 600 mg PO Q6HR PRN #30 tab 01/11/21 [Rx] Follow up Appointment(s)/Referral(s): Alli Zapata DO [Doctor of Osteopathic Medicine] - 1 Week Activity/Diet/Wound Care/Special Instructions: No heavy Lifting, limit stairs and driving, and pelvic rest. If any high temperatures, heavy bleeding, or severe pain call my office Discharge Disposition: HOME SELF-CARE
[2021-01-11 09:18] LABS: Basophils % (A) 1 %; Eosinophils # (A) 0.1 k/uL (0-0.7); Eosinophils % (A) 1 %; HCT 36.9 % (34.0-46.0); HGB 12.1 gm/dL (11.4-16.0); Lymphocytes # (A) 2.4 k/uL (1.0-4.8); Lymphocytes % (A) 33 %; MCH 31.4 pg (25.0-35.0); MCHC 32.9 g/dL (31.0-37.0); MCV 95.7 fL (80.0-100.0); Monocytes # (A) 0.2 k/uL (0-1.0); Monocytes % (A) 2 %; Neutrophils # (A) 4.6 k/uL (1.3-7.7); Neutrophils % (A) 62 %; Platelet Count 272 k/uL (150-450); RBC 3.86 m/uL (3.80-5.40); RDW 12.1 % (11.5-15.5); WBC 7.5 k/uL (3.8-10.6)
--- NOTE | 2021-01-11 13:44 | US ---
EXAMINATION TYPE: US venous doppler duplex LE RT DATE OF EXAM: 01/11/2021 9:48 AM COMPARISON: NONE CLINICAL HISTORY: dvt. Pain in right leg after surgery SIDE PERFORMED: Right TECHNIQUE: The lower extremity deep venous system is examined utilizing real time linear array sonog selma with graded compression, doppler sonography and color-flow sonography. VESSELS IMAGED: Common Femoral Vein Deep Femoral Vein Greater Saphenous Vein * Femoral Vein Popliteal Vein Small Saphenous Vein * Proximal Calf Veins (* superficial vessels) Right Leg: Negative for DVT IMPRESSION: No evidence for DVT at this time.
== END 2021-01-11 12:10 | disposition home or self-care (01) ==
LOC: OR 06:41 → 6PED 10:36 → OR 01-11 12:10
PROVIDERS: ATTEND Obstetrics & Gynecology
DX: R10.2 Pelvic and perineal pain (principal); G89.29 Other chronic pain; M79.604 Pain in right leg; N72 Inflammatory disease of cervix uteri; N80.0 Endometriosis of uterus; E78.5 Hyperlipidemia, unspecified; E03.9 Hypothyroidism, unspecified; F41.8 Other specified anxiety disorders; Z86.79 Personal history of other diseases of the circulatory system; Z82.49 Family history of ischemic heart disease and other diseases of the circulatory system; Z87.891 Personal history of nicotine dependence; Z20.822 Contact with and (suspected) exposure to COVID-19
CPT/HCPCS: 58571; S2900; 64999; 81025; 85025; 86850; 86900; 86901; 87635; 88307

== ENCOUNTER 2021-08-12 09:59 | Emergency (ER) | payer BC ==
[2021-08-12] MEDS ORDERED: CAFFEINE-SODIUM BENZOATE 500 MG in SODIUM CHLORIDE 0.9% 1,000 ML IVPB ONE (15:00)
[2021-08-12 15:13] LABS: INR 0.9 (<1.2); Partial Thromboplastin Time 23.9 sec (22.0-30.0); Prothrombin Time 9.8 sec (9.0-12.0)
[2021-08-12 15:37] LABS: Basophils # (A) 0.1 k/uL (0-0.2); Basophils % (A) 1 %; Eosinophils # (A) 0.3 k/uL (0-0.7); Eosinophils % (A) 3 %; HCT 39.4 % (34.0-46.0); HGB 13.1 gm/dL (11.4-16.0); Lymphocytes # (A) 1.4 k/uL (1.0-4.8); Lymphocytes % (A) 15 %; MCH 31.3 pg (25.0-35.0); MCHC 33.2 g/dL (31.0-37.0); MCV 94.3 fL (80.0-100.0); Mean Platelet Volume 7.9; Monocytes # (A) 0.3 k/uL (0-1.0); Monocytes % (A) 3 %; Neutrophils # (A) 7.4 k/uL (1.3-7.7); Neutrophils % (A) 77 %; Platelet Count 342 k/uL (150-450); RBC 4.18 m/uL (3.80-5.40); RDW 11.8 % (11.5-15.5); WBC 9.5 k/uL (3.8-10.6)
[2021-08-12 16:10] LABS: ALT 25 U/L (4-34); AST 25 U/L (14-36); African American GFR (CKD) >90 (>60 ml/min/1.73 sqM); Alkaline Phosphatase 50 U/L (38-126); Anion Gap 7 mmol/L; Blood Urea Nitrogen 16 mg/dL (7-17); Carbon Dioxide 31 mmol/L (22-30); Chloride 100 mmol/L (98-107); Glucose 102 mg/dL (74-99); Magnesium 2.1 mg/dL (1.6-2.3); Non-African American GFR(CKD) >90 (>60 ml/min/1.73 sqM); Potassium 4.7 mmol/L (3.5-5.1); Sodium 138 mmol/L (137-145); Total Bilirubin 1.1 mg/dL (0.2-1.3); Total Protein 7.4 g/dL (6.3-8.2)
[2021-08-12] MEDS ORDERED: HYDROmorphone 0.5 MG/0.5 ML SYRINGE IVP STA (16:16)
[2021-08-12 16:19] LABS: Amorphous Sediment,Urine Occasional /hpf; Appearance,Urine Cloudy (Clear); Bilirubin,Urine Negative (Negative); Blood,Urine Negative (Negative); Color,Urine Yellow; Glucose,Urine (UA) Negative (Negative); Ketones,Urine Negative (Negative); Leukocyte Esterase,Urine Negative (Negative); Mucus,Urine Rare /hpf; Nitrite,Urine Negative (Negative); PH, Urine 7.5 (5.0-8.0); Protein,Urine Negative (Negative); RBC,Urine <1 /hpf (0-5); Specific Gravity,Urine 1.015 (1.001-1.035); Squamous Epithelial Cell,Urine 9 /hpf (0-4); Urobilinogen,Urine <2.0 mg/dL (<2.0); WBC,Urine 4 /hpf (0-5)
[2021-08-12 17:05] LABS: Erythrocyte Sedimentation Rate 18 mm/hr (0-20)
--- NOTE | 2021-08-12 17:21 | CT ---
EXAMINATION TYPE: CT angio head DATE OF EXAM: 08/12/2021 COMPARISON: MR scan 09/18/2016 HISTORY: Headaches, recent femur surgery, h/o aneurysm CT DLP: 2433.8 mGycm Automated exposure control for dose reduction was used. CONTRAST: Performed with IV Contrast, patient injected with 100 mL of Isovue 370. Images of the brain obtained without contrast. Images obtained from the skull base to the vertex of the brain without IV contrast. There are Three-D postprocessed images. Noncontrast images show no mass effect or midline shift. No sign of intracranial hemorrhage. Ventricl es have normal size. There is arterial flow in the anterior middle and posterior cerebral arteries. There is arterial flow in the intracranial internal carotid arteries. There is normal enhancement of the venous sinuses. Th ere is no mass effect. There is no evidence of neovascularity. No hemodynamic stenosis. There is a small focal bulge on the posterior wall of the distal left internal carotid artery best se en on image 10 of the sagittal MIPS. This is consistent with a sessile 2 mm aneurysm not changed comp ared to old exam. IMPRESSION: Very small 2 mm aneurysm on the posterior wall of the left distal internal carotid artery without chuyita nge compared to old exam.
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
--- NOTE | 2021-08-12 20:23 | P.PCN ---
Date of Procedure: 08/12/21 Procedure(s) Performed: Operation= epidural blood patch. preoperative diagnosis= post dural puncture headache. Post operative diagnoses= post dural puncture headache. Anesthesia= local infiltration with lidocaine 1% 3 mL. Condition= stable. Complications= none. Indication for the procedure= this patient had epidural/spinal a few days ago, and currently patient complaining of severe positional headache, improved with the supine position and increased with the sitting and standing position, and she is diagnosed with post dural puncture headache, there is no focal neurological deficit, no fever,, and no neck stiffness, patient is a good candidate to have epidural blood patch, because the conservative treatment failed, risks and benefits of the procedure discussed with the patient and agreed with proceeding, Description of the procedure= patient in sitting position, back lumbar area prepped with chlorhexidine x3 times then the back draped , then L4-5 interlaminar space local infiltration of the skin and subcu tissues with lidocaine 1% 3 mL, then 20 -gauge Tuohy needle, advanced at the L5-S1 interlaminar space, as positive loss of resistance to normal saline, was no heme and no paresthesia, no cerebrospinal fluid, then after that 20 mL of autologous blood taken under strict sterile technique from the right antecubital area was prepped with the chlorhexidine 3 times, and using Angiocath 20 ML of the block taken from the antecubital vein under strict sterile technique injected in the epidural space after negative aspiration for heme or cerebrospinal fluid, and there was no paresthesia, and after 20 ML of the blood injected in the epidural space ,the headache improved, and patient tolerated the procedure well without any complication and patient discharged home .
[2021-08-12 20:43] VITALS: BP 123/78; PULSE 95; RESP 16; TEMP 98
== END 2021-08-12 20:42 | disposition home or self-care (01) ==
LOC: EC 09:59
DX: T88.59XA Other complications of anesthesia, initial encounter (principal); G44.40 Drug-induced headache, not elsewhere classified, not intractable; Z79.82 Long term (current) use of aspirin; E07.9 Disorder of thyroid, unspecified; Z90.49 Acquired absence of other specified parts of digestive tract; Z98.51 Tubal ligation status; Z87.891 Personal history of nicotine dependence; X58.XXXA Exposure to other specified factors, initial encounter
CPT/HCPCS: 99284; 96365; 96375; 62273; 36415; 80053; 85652; 83735; 85025; 85610; 85730; 81001; 81025; 70496; J1170; Q9967

== ENCOUNTER 2021-09-18 11:52 | Emergency (ER) | payer BC ==
[2021-09-18] MEDS ORDERED: DIPHENOX-ATROP 2.5-0.025 MG 1 EACH TAB PO STA (12:16)
[2021-09-18] MEDS ORDERED: SODIUM CHLORIDE 0.9% 2,000 ML IV STA (12:16)
[2021-09-18] MEDS ORDERED: ONDANSETRON 4 MG/2 ML VIAL IVP STA (12:16)
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
[2021-09-18 13:11] VITALS: BP 117/95; PULSE 100; RESP 14; TEMP 97.1
[2021-09-18 13:35] LABS: Basophils % (A) 1 %; Eosinophils # (A) 0.1 k/uL (0-0.7); Eosinophils % (A) 1 %; HCT 48.3 % (34.0-46.0); Lymphocytes % (A) 32 %; MCH 31.4 pg (25.0-35.0); MCHC 34.7 g/dL (31.0-37.0); MCV 90.5 fL (80.0-100.0); Mean Platelet Volume 7.8; Monocytes # (A) 0.5 k/uL (0-1.0); Monocytes % (A) 8 %; Neutrophils # (A) 3.3 k/uL (1.3-7.7); Neutrophils % (A) 54 %; Platelet Count 411 k/uL (150-450); RBC 5.33 m/uL (3.80-5.40); RDW 12.4 % (11.5-15.5)
[2021-09-18 13:50] LABS: ALT 65 U/L (4-34); AST 49 U/L (14-36); African American GFR (CKD) >90 (>60 ml/min/1.73 sqM); Albumin 5.2 g/dL (3.5-5.0); Alkaline Phosphatase 70 U/L (38-126); Amylase 66 U/L (30-110); Anion Gap 14 mmol/L; Blood Urea Nitrogen 16 mg/dL (7-17); Calcium 9.5 mg/dL (8.4-10.2); Carbon Dioxide 22 mmol/L (22-30); Chloride 100 mmol/L (98-107); Glucose 111 mg/dL (74-99); Lipase 50 U/L (23-300); Non-African American GFR(CKD) >90 (>60 ml/min/1.73 sqM); Potassium 3.8 mmol/L (3.5-5.1); Sodium 136 mmol/L (137-145); Total Bilirubin 0.8 mg/dL (0.2-1.3); Total Protein 8.9 g/dL (6.3-8.2)
[2021-09-18 13:51] LABS: Appearance,Urine Cloudy (Clear); Bacteria,Urine Rare /hpf; Bilirubin,Urine Negative (Negative); Blood,Urine Small (Negative); Color,Urine Yellow; Glucose,Urine (UA) Negative (Negative); Hyaline Casts,Urine 56 /lpf (0-2); Ketones,Urine Negative (Negative); Leukocyte Esterase,Urine Small (Negative); Mucus,Urine Few /hpf; Nitrite,Urine Negative (Negative); PH, Urine 6.5 (5.0-8.0); Protein,Urine 1+ (Negative); RBC,Urine 5 /hpf (0-5); Squamous Epithelial Cell,Urine 7 /hpf (0-4); Urobilinogen,Urine <2.0 mg/dL (<2.0); WBC,Urine 13 /hpf (0-5)
[2021-09-18 13:57] LABS: HGB 16.7 gm/dL (11.4-16.0)
[2021-09-18] MEDS ORDERED: ONDANSETRON 4 MG ODT STARTER PACK 2 TAB BTL PO STA (14:18)
[2021-09-18] MEDS ORDERED: DIPHENOX-ATROP STARTER PACK 8 TAB BTL PO STA (14:18)
== END 2021-09-18 14:41 | disposition home or self-care (01) ==
LOC: EC 11:52
DX: K52.9 Noninfective gastroenteritis and colitis, unspecified (principal); E07.9 Disorder of thyroid, unspecified; Z79.890 Hormone replacement therapy
CPT/HCPCS: 36415; 80053; 82150; 83690; 85025; 81001; 87086; 99283; 96374; 96361; J2405; S0119

== ENCOUNTER → 2021-11-18 | Outpatient (CLI) | payer BC | END | disposition home or self-care (01) | LOC: LABWHC1 09:28 | PROVIDERS: ATTEND Psychiatry & Neurology Neurology | DX: Z01.812 Encounter for preprocedural laboratory examination (principal) | CPT/HCPCS: 93005 ==

== ENCOUNTER → 2023-10-08 | Outpatient (CLI) | payer BC ==
--- NOTE | 2023-10-08 14:28 | US ---
EXAMINATION TYPE: US thyroid st tissue head/neck DATE OF EXAM: 10/08/2023 COMPARISON: NONE CLINICAL INDICATION: Female, 43 years old with history of E03.9 HYPOTHYROIDISM, UNSPECIFIED; Patient states having hx of RIGHT thyroid nodule with biopsy = benign. Not on thyroid meds anymore. GLAND SIZE: Right Lobe: 4.2 x 1.6 x 1.2 cm Overall Parenchyma: homogeneous Left Lobe: 4.5 x 1.7 x 1.0 cm Overall Parenchyma: homogeneous Isthmus Thickness: 0.3 cm NODULES RIGHT: # of nodules measured on right: 0 LEFT: # of nodules measured on left: 1 1. 1.8 X 1.2 cm, lower mid/lateral, calcified solid or almost completely solid, hyperechoic nodule , which is taller than wide, with smooth margins, with echogenic foci. Prior size: No prior here ISTHMUS: # of nodules measured in the isthmus: 0 Bilateral neck scanned, no evidence of lymphadenopathy. IMPRESSION: 1.8 cm TR 8 left lobe nodule. Fine-needle aspiration is recommended. Highly suspicious for neoplasm 2017 ACR TI-RADS LEVEL: TR 8 *Highest TI-RADS level nodule reported
== END | disposition home or self-care (01) ==
LOC: RADUSWWP 11:28
PROVIDERS: ATTEND Family Medicine
DX: R22.0 Localized swelling, mass and lump, head (principal); E03.9 Hypothyroidism, unspecified
CPT/HCPCS: 76536

== ENCOUNTER 2024-01-06 15:07 | Emergency (ER) | payer BC ==
[2024-01-06 15:16] VITALS: TEMP 97.8
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
[2024-01-06 16:30] LABS: Basophils % (A) 0 %; Eosinophils # (A) 0.1 k/uL (0-0.7); Eosinophils % (A) 1 %; HCT 41.9 % (34.0-46.0); HGB 13.9 gm/dL (11.4-16.0); Lymphocytes # (A) 2.2 k/uL (1.0-4.8); Lymphocytes % (A) 29 %; MCH 30.5 pg (25.0-35.0); MCHC 33.1 g/dL (31.0-37.0); MCV 92.1 fL (80.0-100.0); Mean Platelet Volume 7.8; Monocytes # (A) 0.4 k/uL (0-1.0); Monocytes % (A) 5 %; Neutrophils # (A) 4.7 k/uL (1.3-7.7); Neutrophils % (A) 64 %; Platelet Count 333 k/uL (150-450); RBC 4.55 m/uL (3.80-5.40); RDW 11.9 % (11.5-15.5); WBC 7.4 k/uL (3.8-10.6)
[2024-01-06 16:45] LABS: ALT 42 U/L (4-34); AST 23 U/L (14-36); African American GFR (CKD) >90 (>60 ml/min/1.73 sqM); Albumin 4.4 g/dL (3.5-5.0); Alkaline Phosphatase 47 U/L (38-126); Amylase 51 U/L (30-110); Anion Gap 5 mmol/L; Blood Urea Nitrogen 16 mg/dL (7-17); Calcium 9.6 mg/dL (8.4-10.2); Carbon Dioxide 30 mmol/L (22-30); Chloride 105 mmol/L (98-107); Glucose 89 mg/dL (74-99); Lipase 90 U/L (23-300); Magnesium 2.2 mg/dL (1.6-2.3); Non-African American GFR(CKD) >90 (>60 ml/min/1.73 sqM); Sodium 140 mmol/L (137-145); Total Bilirubin 0.9 mg/dL (0.2-1.3); Total Protein 7.4 g/dL (6.3-8.2)
[2024-01-06] MEDS: KETOROLAC 15 MG/ML 1 ML VIAL IVP STA (17:09)
[2024-01-06] MEDS: LORazepam 2 MG/ML INJ IV STA (18:36)
[2024-01-06] MEDS: SODIUM CHLORIDE 0.9% 1,000 ML IV STA (18:59)
--- NOTE | 2024-01-06 19:06 | CT ---
EXAMINATION TYPE: CT angio chest CT DLP: 332.7 mGycm, Automated exposure control for dose reduction was used. DATE OF EXAM: 01/06/2024 6:56 PM COMPARISON: None. CLINICAL INDICATION:Female, 43 years old with history of pe; SOB. SHRUTHI. R/O PE. TECHNIQUE/CONTRAST: CTA scan of the thorax is performed with IV Contrast, patient injected with 100 ml mL of Isovue 370, MIP images are created and reviewed these are created on a separate workstation.. FINDINGS: Pulmonary Artery: There is no evidence for a filling defect within the pulmonary vasculature to sugge st acute pulmonary embolism. The pulmonary artery is of normal size. Lungs/Pleura: No evidence of focal consolidation, pleural effusion or pneumothorax. Airway: Large airways are patent. Heart: Heart is within normal limits for size. Vasculature: No evidence of aortic aneurysm. Mediastinum: No gross evidence of adenopathy. Musculoskeletal: No acute osseous abnormalities Soft Tissues: Unremarkable. Lower neck: Partially calcified left thyroid nodule.. Upper Abdomen: No significant findings. IMPRESSION: 1. No evidence of pulmonary embolism. 2. Partially calcified left thyroid nodule, recommend nonemergent thyroid ultrasound for further eval uation if not previously performed. [facility], , 01/06/2024 7:03 PM
[2024-01-06 19:38] VITALS: BP 110/74; PULSE 67; RESP 16
== END 2024-01-06 19:31 | disposition home or self-care (01) ==
LOC: EC 15:07
CPT/HCPCS: 36415; 71275; 80053; 82150; 83690; 83735; 84484; 85025; 85379; 87636; 93005; 99285